=== PATIENT | male | born 1955 | race Caucasian/White ===

== ENCOUNTER 2021-04-03 07:12 | Emergency (ER) | payer OTHER ==
[~2021-04-03] VITALS: Ht 182.9 cm; Wt 93.4 kg
[~2021-04-03 07:12] MED LIST: NOHOMEMEDICATIONS
[2021-04-03] MEDS ORDERED: LEVOFLOXACIN500 MG PO (07:33)
[2021-04-03 07:48] LABS: URINE BILIRUBIN NEGATIVE (Negative); URINE BLOOD 3+ (Negative); URINE CLARITY CLEAR; URINE COLOR YELLOW; URINE GLUCOSE-RANDOM NEGATIVE (Negative); URINE KETONES NEGATIVE (Negative); URINE LEUKOCYTES-REFLEX 1+ (Negative); URINE NITRITE-REFLEX NEGATIVE (Negative); URINE PROTEIN 1+ (Negative); URINE UROBILINOGEN 0.2 E.U./dl (0.2-1.0)
[2021-04-03 08:01] LABS: BACTERIA-REFLEX 1-9 Few /HPF (None Seen); CASTS None Seen /LPF (None Seen); CRYSTALS None Seen /LPF (None Seen); SQUAMOUS 0-3 Few /LPF (0-3); URINE WBC-REFLEX 6-15 Few /HPF (0-5)
[2021-04-03 08:35] LABS: ABSOLUTE BASOPHILS 0.1 thou/uL (0.0-0.2); ABSOLUTE EOSINOPHILS 0.3 thou/uL (0.0-0.7); ABSOLUTE LYMPHOCYTES 2.3 thou/uL (0.8-5.3); ABSOLUTE MONOCYTES 0.7 thou/uL (0.0-1.2); ABSOLUTE NEUTROPHILS 7.2 thou/uL (1.6-8.1); EOSINOPHILS 2.4 %; HEMATOCRIT 47.4 % (42.0-52.0); HEMOGLOBIN 16.1 gm/dL (14.0-18.0); LYMPHOCYTES 21.6 %; MCH 31.1 pg (26.0-34.0); MCV 91.6 fL (80.0-100.0); MONOCYTES 6.9 %; MPV 8.9 fl. (7.2-11.1); NUCLEATED RBCS 0 /100WBC; PLATELET COUNT* 209 thou/uL (150-400); POLYS 68.1 %; RBC 5.17 mil/uL (4.50-6.00); RDW-CV 13.7 % (10.5-14.5); WBC 10.6 thou/uL (4.0-11.0)
[2021-04-03 08:41] LABS: CALCIUM 8.5 mg/dL (8.5-10.1); CREATININE 1.4 mg/dL (0.6-1.3)
[2021-04-03 08:45] LABS: ALBUMIN 3.7 g/dL (3.4-5.0); TOTAL BILIRUBIN 0.8 mg/dL (<0.1-1.0); TOTAL PROTEIN 7.8 g/dL (6.4-8.2)
[2021-04-03] MEDS ORDERED: HYDROCODON-ACE1 EAC7 PO (10:11)
[2021-04-03] MEDS ORDERED: ZOFRAN ODT4 MG DISSOLVE (10:11)
[2021-04-03 10:26] VITALS: BP 120/56
--- NOTE | 2021-04-03 10:39 | EKG ---
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1955 Requested By: Dileep Brown Order Number: [id number] MD: Kendall Pastor Measurements Intervals [place] Rate: 80 P: 44 NM: 144 QRS: 79 QRSD: 92 T: 58 QT: 379 QTc: 438 Interpretive Statements Sinus rhythm Probable inferior infarct, old No previous ECG available for comparison Electronically Signed On 04-03-2021 10:38:30 [employer] by Kendall Pastor [email or web address] <ELECTRONICALLY SIGNED> By: Kendall Pastor MD, [facility] 04/03/21 [facility] 1 1 Kendall Pastor MD, FACC /EPI
== END 2021-04-03 10:27 | disposition home or self-care (01) ==
LOC: M.ERS 07:12
PROVIDERS: Emergency Medicine Emergency Medical Services
DX: N32.89 Other specified disorders of bladder (principal); F17.200 Nicotine dependence, unspecified, uncomplicated; Z88.0 Allergy status to penicillin; Z88.2 Allergy status to sulfonamides; Z91.041 Radiographic dye allergy status; Z88.8 Allergy status to other drugs, medicaments and biological substances